=== PATIENT | male | born 1980 | race Caucasian/White ===

== ENCOUNTER 2016-09-15 08:27 | Emergency (ER) | payer SELFPAY ==
[2016-09-15 08:41] VITALS: BP 138/82; PULSE 68; TEMP 98.8; BMI 34.2
--- NOTE | 2016-09-15 09:18 | PDOC ---
History of Present Illness - General Chief Complaint: Pain, Acute Stated Complaint: ANKLE PAIN Time Seen by Provider: 09/15/16 09:12 History Source: Patient Exam Limitations: No Limitations - History of Present Illness Initial Comments: 09/15/16 09:36 Patient came for evaluation of right knee pain. 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 And states noted 2 days ago had an acute injury to his right knee and noted swelling to the superior aspect of patella. States range of motion had become limited, but became concerned when he noticed some bruising inferior to that site. Patient denies numbness or tingling or other injury. Occurred: reports: yesterday Severity: reports: mild, moderate Pain Location: reports: lower extremity Method of Injury: Yes: unknown (right knee) Associated Symptoms (Fall): denies symptoms Past History - Travel Traveled outside of the country in the last 30 days: No Close contact w/someone who was outside of country & ill: No - Past Medical History Allergies/Adverse Reactions: Allergies Allergy/AdvReac Type Severity Reaction Status Date / Time No Known Allergies Allergy Verified 09/15/16 08:42 Home Medications: Ambulatory Orders Cephalexin Monohydrate [Keflex -] 500 mg PO Q6H #12 capsule 12/13/15 Hypercholesterolemia: Yes - Psycho/Social/Smoking Cessation Hx Anxiety: No Suicidal Ideation: No Smoking History: Former smoker Have you smoked in the past 12 months: No Number of Cigarettes Smoked Daily: 4 Cigars Per Day: 1 Information on smoking cessation initiated: No Hx Alcohol Use: Yes (OCCASIONALLY) Drug/Substance Use Hx: No Substance Use Type: None Review of Systems - Review of Systems Able to Perform ROS?: Yes Is the patient limited Slovenian proficient: Yes Constitutional: Yes: Symptoms Reported, See HPI, Malaise HEENTM: No: Symptoms Reported Respiratory: No: Symptoms reported Musculoskeletal: Yes: Symptoms Reported, See HPI, Joint Pain, Joint Swelling Integumentary: Yes: Symptoms Reported, See HPI, Bruising Neurological: Yes: Symptoms reported All Other Systems: Reviewed and Negative *Physical Exam - Vital Signs Last Vital Signs Temp Pulse Resp BP Pulse Ox 98.8 F 68 18 138/82 99 09/15/16 08:37 09/15/16 08:37 09/15/16 08:37 09/15/16 08:37 09/15/16 08:37 - Physical Exam General Appearance: Yes: Nourished, Appropriately Dressed, Apparent Distress, Mild Distress HEENT: positive: EMANUEL, Normal ENT Inspection, TMs Normal, Pharynx Normal Musculoskeletal: negative: Normal Inspection Extremity: positive: Normal Capillary Refill. negative: Normal Range of Motion (Limited range of motion secondary to swelling) Integumentary: positive: Swelling, Ecchymosis, Bruising (superior to patella, no crepitus or step-offs, has tenderness reproduced along the medial and lateral aspects, and mild posterior fossa tenderness. Range of motion is limited secondary to swelling. Has no pretibial tenderness. 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 Will immobilize, and have follow-up with orthopedist *DC/Admit/Observation/Transfer Diagnosis at time of Disposition: Strain of right knee Qualifiers: Encounter type: initial encounter Qualified Code(s): S86.911A - Strain of unspecified muscle(s) and tendon(s) at lower leg level, right leg, initial encounter - Discharge Dispostion Disposition: HOME Condition at time of disposition: Stable Admit: No - Referrals Referrals: Usama Cortez MD [Staff Physician] - - Patient Instructions Printed Discharge Instructions: DI for Knee Sprain Additional Instructions: Rest, ice to area on and off for 15 minutes 4-6 times a day Avoid heavy lifting or exercise until pain and swelling is resolved or until further directed Keep area highly elevated to reduce swelling Use splints/Chas wrap as directed Followup with orthopedist in one to 2 days if not improving, if significantly improved may wait one week for followup with orthopedist May use ibuprofen 2-200 mg tablets every 6 hours as needed for pain - Post Discharge Activity Work/School Note: Back to Work
== END 2016-09-15 09:50 | disposition home or self-care (01) ==
LOC: JER 08:27 → JERFT 08:27
DX: S86.911A Strain of unspecified muscle(s) and tendon(s) at lower leg level, right leg, initial encounter (principal); S80.01XA Contusion of right knee, initial encounter; X50.1XXA Overexertion from prolonged static or awkward postures, initial encounter; X50.9XXA Other and unspecified overexertion or strenuous movements or postures, initial encounter; Y93.89 Activity, other specified; Y92.89 Other specified places as the place of occurrence of the external cause; Y99.0 Civilian activity done for income or pay
CPT/HCPCS: 73562-TC-RT; 99281-25

== ENCOUNTER 2017-02-09 17:58 | Emergency (ER) | payer SELFPAY ==
[2017-02-09 18:04] VITALS: BP 135/82; PULSE 67; TEMP 98.7; BMI 28.3
--- NOTE | 2017-02-09 18:06 | PDOC ---
Rapid Medical Evaluation Chief Complaint: Wound Time Seen by Provider: 02/09/17 18:01 Medical Evaluation: Allergies Allergy/AdvReac Type Severity Reaction Status Date / Time No Known Allergies Allergy Verified 02/09/17 18:01 02/09/17 18:01 I have performed a brief in-person evaluation of this patient. The patient presents with a chief complaint of: "I have glass in my hand." Pertinent exam findings: EXT:abscess noted to proximal flores ulnar aspect of left hand I have ordered the following: N/A The patient will proceed to the ED for further evaluation.
--- NOTE | 2017-02-09 19:39 | PDOC ---
History of Present Illness - General Chief Complaint: Wound Stated Complaint: WOUND Time Seen by Provider: 02/09/17 18:01 - History of Present Illness Initial Comments: 02/09/17 19:34 CHIEF COMPLAINT: painful bump to left wrist HISTORY OF PRESENT ILLNESS: 36 yo M with no significant PMH presents to fast track with painful bump to left wrist. Patient reports that he has "had glass in my wrist for over 8 months." Patient states he was seen here and had stitches placed and removed, but he "always knew there was still glass inside." However last week he saw a piece of glass sticking out of his hand pulled it out himself, and today he saw another piece of glass sticking out and tried to pull it out "but I couldn't." Patient denies any nausea, vomiting, fever, chills , diarrhea. SOCIAL HISTORY: Denies tobacco, alcohol, illicit drug use. ALLERGIES: No known drug allergies REVIEW OF SYSTEMS General/Constitutional: Denies fever or chills. Denies weakness, weight change. Gastrointestinal: Denies nausea, vomiting, diarrhea. Musculoskeletal: Denies joint or muscle swelling or pain. Denies neck or back pain. Skin: Bump to left wrist "there's glass inside". PHYSICAL EXAM General Appearance: Well-appearing, appropriately dressed. No apparent distress. HEENT: EOMI, PERRLA. No conjunctival pallor. No photophobia, scleral icterus. Respiratory/Chest: Lungs CTAB. Cardiovascular: RRR. S1, S2. Musculoskeletal/Extremities: Normal inspection. FROM of all extremities, normal capillary refill. Pelvis Stable. No CVA tenderness. No tenderness to extremities, pedal edema, swelling, erythema or deformity. Integumentary: Bump to proximal palmar aspect of wrist, hard foreign body appreciated underneath skin and healed laceration. No erythema or discharge. Appropriate color, dry, warm. No cyanosis, erythema, jaundice or rash Neurologic: floor scraper II-XII intact. Fully oriented, alert. Appropriate mood/affect. Motor strength 5/5. No appreciable EOM palsy, facial droop or sensory deficit. Past History - Past Medical History Allergies/Adverse Reactions: Allergies Allergy/AdvReac Type Severity Reaction Status Date / Time No Known Allergies Allergy Verified 02/09/17 18:01 Home Medications: Ambulatory Orders Ibuprofen 600 mg PO TID PRN #21 tablet 02/09/17 CVA: No COPD: No Hypercholesterolemia: Yes - Immunization History Immunization Up to Date: Yes - Suicide/Smoking/Psychosocial Hx Smoking History: Former smoker Have you smoked in the past 12 months: No Number of Cigarettes Smoked Daily: 4 If you are a former smoker, when did you quit?: 1YRS Cigars Per Day: 1 Information on smoking cessation initiated: No Hx Alcohol Use: No Drug/Substance Use Hx: No Substance Use Type: None *Physical Exam - Vital Signs Last Vital Signs Temp Pulse Resp BP Pulse Ox 98.7 F 67 16 135/82 97 02/09/17 18:01 02/09/17 18:01 02/09/17 18:01 02/09/17 18:01 02/09/17 18:01 ED Treatment Course - RADIOLOGY Radiology Studies Ordered: Category Date Time Status WRIST W/HAND-LEFT* [RAD] Stat Radiology 02/09/17 19:11 Taken Medical Decision Making - Medical Decision Making 02/09/17 19:39 36 yo M with no significant PMH presents to fast track with painful bump to left wrist. -L wrist/hand x-ray Positive for radioopaque foriegn object to palmar aspect of wrist. Discussed with patient that he will need to see a hand specialist in order to have foriegn object extricated as at this time it is already embedded in tissue. Patient verbalized understanding and agrees to plan. *DC/Admit/Observation/Transfer Diagnosis at time of Disposition: Foreign body (FB) in soft tissue - Discharge Dispostion Disposition: HOME Condition at time of disposition: Stable Admit: No - Prescriptions Prescriptions: Ibuprofen 600 mg PO TID PRN #21 tablet PRN Reason: Pain - Referrals Referrals: Victor M Zuluaga MD [Staff Physician] - [facility] [Outside] - Patient Instructions Additional Instructions: As discussed, you will need to see an orthopedist and/or hand specialist in order to have the foreign object removed from your hand. You have been provided referrals for options as to where to be seen. If you develop any fever, chills, vomiting, or diarrhea, or you develop any redness, warmth, or streaking to the area of injury, please return to the ER immediately. - Post Discharge Activity
== END 2017-02-09 19:52 | disposition home or self-care (01) ==
LOC: JERFT 17:58
DX: M79.5 Residual foreign body in soft tissue (principal)
CPT/HCPCS: 73110-TC-LT; 73130-TC-LT; 99281-25